=== PATIENT | male | born 1950 | race African-American/Black ===

== ENCOUNTER 2017-11-20 09:48 | Emergency (ER) | payer MEDICARE ==
[~2017-11-20] VITALS: Ht 175.3 cm; Wt 102.1 kg
[~2017-11-20 09:48] MED LIST: AMLODIPINE BESY10 MG PO; DIOVAN160 MG PO; METFORMIN HCL500 MG PO; TAMSULOSIN HCL0.4 MG PO
--- OUTSIDE RECORDS SUMMARY | 2017-11-20 09:50 | XMS REPORT ---
Author Author [facility] Address Unknown Phone Unavailable Care Team Providers Care Safety Equipment Tester Name Role Phone SHANNAN MERCHANT Unavailable Unavailable Problems This patient has no known problems. Allergies, Adverse Reactions, Alerts This patient has no known allergies or adverse reactions. Medications This patient has no known medications. Results Test Description Test Time Test Comments Text Results Atomic Results Result Comments CHEST SINGLE (PORTABLE) [place] [address] Patient Name: ROBBIE FIGUEROA MR #: [id number] : 1950 Age/Sex: 67/M Req #: [id number] Adm Physician: Ordered by: OSCAR MARIE Report #: [id number] Location: ER Room/Bed: Procedure: [id number] DX/CHEST SINGLE (PORTABLE) Exam Date: 06/07/17 Exam Time: 1520 REPORT STATUS: Signed PROCEDURE: CHEST SINGLE (PORTABLE) COMPARISON: None. INDICATIONS: HIGH BLOOD PRESSURE FINDINGS: LUNGS: No consolidations or edema. PLEURA: No effusions or pneumothorax. HEART T MEDIASTINUM: The heart is within normal size-limits. BONES T SOFT TISSUES: No acute findings. CONCLUSION: No acute thoracic abnormality. Audelia Finnegan D.O. Dictated by: Audelia Finnegan D.O. on 06/07/2017 at 15:42 Electronically approved by: Audelia Finnegan D.O. on 06/07/2017 at 15:42 Dictated By: AUDELIA FINNEGAN DO 154 Transcribed By: MEIR on 06/07/171541 COPY TO: OSCAR MARIE
[2017-11-20] MEDS ORDERED: PANTOPRAZOLE 40 MG 10ML VIAL IV STA (09:58)
[2017-11-20] MEDS ORDERED: SODIUM CHLORIDE 0.9% 1000ML 1,000 ML IV STA (09:58)
[2017-11-20] MEDS ORDERED: MORPHINE SULFATE 4 MG/ML SYR IV STA (09:58)
[2017-11-20] MEDS ORDERED: ONDANSETRON HCL 4 MG ORAL DISINTEGRATING TAB PO ONE (10:00)
[2017-11-20] MEDS ORDERED: MORPHINE SULFATE 2 MG/ML SYR ONE (10:06)
--- NOTE | 2017-11-20 10:43 | Diagnostic Imaging Report ---
EXAMINATION: CHEST SINGLE (PORTABLE) INDICATION: \S\ERMD ORDER \S\Y COMPARISON: None FINDINGS: AP view TUBES and LINES: None. LUNGS: Lungs are well inflated. Lungs are clear. There is no evidence of pneumonia or pulmonary edema. PLEURA: No pleural effusion or pneumothorax. HEART AND MEDIASTINUM: Mild enlargement of the cardiac silhouette. Tortuous thoracic aorta. BONES AND SOFT TISSUES: No acute osseous lesion. Soft tissues are unremarkable. UPPER ABDOMEN: No free air under the diaphragm. IMPRESSION: No acute thoracic abnormality. Signed by: Dr. Natalia Posey M.D. on 11/20/2017 10:40 AM
[2017-11-20 10:59] LABS: BASOPHILS # (AUTO) 0.1 (0.0-0.1); BASOPHILS % 0.6 % (0.0-1.0); EOSINOPHILS # (AUTO) 0.2 (0.0-0.4); EOSINOPHILS % 2.1 % (0.0-6.0); HEMATOCRIT 39.5 % (38.2-49.6); HEMOGLOBIN 12.9 g/dL (14.0-18.0); LYMPHOCYTES # (AUTO) 2.9 (1.0-3.2); LYMPHOCYTES % 32.8 % (18.0-39.1); MEAN CORPUSCULAR HEMOGLOBIN 27.5 pg (28-32); MEAN CORPUSCULAR HGB CONC 32.7 g/dL (31-35); MEAN CORPUSCULAR VOLUME 84.2 fL (81-99); MONOCYTES # (AUTO) 0.7 (0.2-0.8); MONOCYTES % 8.2 % (4.4-11.3); PLATELET COUNT 268 x10e3/uL (140-360); RED BLOOD COUNT 4.69 x10e6/uL (4.3-5.7); RED CELL DISTRIBUTION WIDTH 13.2 % (11.7-14.4)
[2017-11-20 11:04] LABS: BILIRUBIN,URINE NEGATIVE (NEGATIVE); CLARITY,URINE CLEAR (CLEAR); COLOR,URINE YELLOW (YELLOW); KETONES,URINE NEGATIVE (NEGATIVE); LEUKOCYTE ESTERASE ,URINE NEGATIVE (NEGATIVE); NITRITE,URINE NEGATIVE (NEGATIVE); PROTEIN,URINE DIPSTICK NEGATIVE (NEGATIVE); URINE UROBILINOGEN 0.2 mg/dL (0.2 - 1)
[2017-11-20 11:08] LABS: INR 0.9; PROTHROMBIN TIME 11.4 seconds (11.9-14.5)
[2017-11-20 11:19] LABS: ALANINE AMINOTRANSFERASE 29 IU/L (0-55); ALBUMIN 3.6 g/dL (3.5-5.0); ALKALINE PHOSPHATASE 77 IU/L (40-150); AMYLASE 120 U/L (25-125); ANION GAP 14.2 mmol/L (8-16); BLOOD UREA NITROGEN 17 mg/dL (7-26); BUN/CREATININE RATIO 18 (6-25); CALCIUM 9.4 mg/dL (8.4-10.2); CARBON DIOXIDE 26 mmol/L (22-29); CHLORIDE 101 mmol/L (98-107); CREATININE, SERUM 0.96 mg/dL (0.72-1.25); EST GLOMERULAR FILTRATION RATE > 60 ML/MIN (60-); GLUCOSE 144 mg/dL (74-118); LIPASE 27 U/L (8-78); POTASSIUM 3.2 mmol/L (3.5-5.1); SODIUM 138 mmol/L (136-145)
--- NOTE | 2017-11-20 13:25 | Diagnostic Imaging Report ---
EXAM: CT Abdomen and Pelvis WITH contrast INDICATION: Abdominal pain COMPARISON: Chest radiograph 11/20/2017 TECHNIQUE: Abdomen and pelvis were scanned utilizing a multidetector helical scanner from the lung base to the pubic symphysis after administration of IV contrast. Coronal and sagittal reformations were obtained. Routine protocol was performed. Scan was performed when during portal venous phase. IV CONTRAST: 100 mL of Isovue-370 ORAL CONTRAST: Water RADIATION DOSE: Total DLP: 792 mGy*cm Estimated effective dose: (DLP x 0.015 x size factor) mSv COMPLICATIONS: None FINDINGS: LINES and TUBES: None. LOWER THORAX: Few tiny noncalcified pleural plaques along both hemidiaphragms, left greater than right. Small hiatal hernia. HEPATOBILIARY: No focal hepatic lesions. No biliary ductal dilation. GALLBLADDER: No radio-opaque stones or sludge. No wall thickening. SPLEEN: No splenomegaly. PANCREAS: No focal masses or ductal dilatation. ADRENALS: No adrenal nodules KIDNEYS/URETERS: The right kidney is absent. The left kidney demonstrates normal enhancement. Mild perinephric fat stranding. No hydronephrosis. No cystic or solid mass lesions. 2 mm nonobstructing calcified stone in the inferior pole of the left kidney on coronal image 54. GI TRACT: No abnormal distention, wall thickening, or evidence of bowel obstruction. Mild scattered diverticulosis throughout the sigmoid colon without diverticulitis. The appendix is not well visualized. She'll running structure adjacent to the cecum in the right lower quadrant on series 301, image 50 may represent a short appendix versus diverticulum. PELVIC ORGANS/BLADDER: Mild prostate calcifications. The urinary bladder is moderately distended without wall thickening. LYMPH NODES: No lymphadenopathy. VESSELS: Unremarkable. PERITONEUM / RETROPERITONEUM: No free air or fluid. BONES: Mild multilevel degenerative changes of the lumbar spine. SOFT TISSUES: Unremarkable. IMPRESSION: 1. Nonobstructing left nephrolithiasis. 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 2. Diverticulosis of the sigmoid colon without diverticulitis. Signed by: Dr. Natalia Posey M.D. on 11/20/2017 1:21 PM
[2017-11-20] MEDS ORDERED: POTASSIUM CHLORIDE 20 MEQ TAB CR PO STA (13:38)
[2017-11-20 13:57] VITALS: BP 144/96
[2017-11-20] MEDS ORDERED: IOPAMIDOL 370 MG/ML 200 ML INFUS..BTL INJ ONE (17:19)
[2017-11-20] MEDS ORDERED: SODIUM CHLORIDE 0.9% 50ML 50 ML ONE (17:19)
== END 2017-11-20 14:13 | disposition home or self-care (01) ==
LOC: ER 09:48
DX: R10.33 Periumbilical pain (principal); R11.0 Nausea; E87.6 Hypokalemia; I10 Essential (primary) hypertension; E11.9 Type 2 diabetes mellitus without complications
CPT/HCPCS: 36415; 71045; 74177; 80053; 81001; 82150; 83690; 85025; 85610; 85730; 93005; 99284; J7030; Q9967; J2270

== ENCOUNTER 2022-01-14 20:28 | Emergency (ER) | payer MEDICARE ==
[~2022-01-14] VITALS: Ht 170.2 cm; Wt 95.3 kg
[2022-01-14] MEDS ORDERED: LIDOCAINE JELLY 2% 10ML URO-JET ONE (20:58)
[2022-01-14 21:35] VITALS: BP 127/79
== END 2022-01-14 21:50 | disposition home or self-care (01) ==
LOC: ER 20:41
DX: R33.9 Retention of urine, unspecified (principal); I10 Essential (primary) hypertension; E11.9 Type 2 diabetes mellitus without complications; N42.9 Disorder of prostate, unspecified
CPT/HCPCS: 51700; 99282